=== PATIENT | female | born 1990 | race Caucasian/White ===

== ENCOUNTER 2018-12-08 08:56 | Day surgery (SDC) | payer OTHER ==
[2018-12-07 17:04] VITALS: BMI 28.5
[2018-12-08 11:10] VITALS: TEMP 98.1
[2018-12-08 11:33] VITALS: BP 104/59
[2018-12-08 12:15] VITALS: PULSE 64
--- NOTE | 2018-12-09 17:10 | PATH ---
Surgical Pathology Report Patient Name: MARISSA PORTILLO [facility]. Rec. #: [id number] /Age/Gender: 1990 (Age: 28) / F Account: [id number] Location: U-ENDOSCOPY Taken: 12/08/2018 Received: 12/08/2018 Reported: 12/09/2018 Physicians: Sterling Roque D.O. Specimen(s) Received A: TRANSVERSE COLON POLYPS B: DISTAL TRANSVERSE COLON POLYP C: DESCENDING COLON Clinical History Family history of GI cancer Postoperative diagnosis and findings: polyps Final Diagnosis A. TRANSVERSE COLON POLYPS, POLYPECTOMY: TUBULAR ADENOMA, ONE FRAGMENT. SEPARATE POLYPOID FRAGMENT OF COLONIC MUCOSA WITH FOCAL SURFACE HYPERPLASTIC CHANGE. B. DISTAL TRANSVERSE COLON POLYP, POLYPECTOMY: TUBULAR ADENOMA. Note: Result for the mismatch repair proteins IHC staining pending. An addendum report to follow. C. DESCENDING COLON, BIOPSY: COLONIC MUCOSA WITH REACTIVE LYMPHOID FOLLICLE IN THE LAMINA PROPRIA. Electronically Signed Sabiha Snowden M.D. Addendum Reported: 12/11/2018 Addendum Diagnosis Immunohistochemistry (IHC) Testing for Mismatch Repair (MMR) Proteins (Block B) performed at [facility] in [place], [place] ([id number]) and interpreted at [facility] show the following results: MLH1 Intact nuclear expression MSH2 Intact nuclear expression MSH6 Intact nuclear expression PMS2 Intact nuclear expression Background nonneoplastic tissue/internal control with intact nuclear expression IHC Interpretation: No loss of nuclear expression of MMR proteins: low probability of microsatellite instability-high (MSI-H) Sabiha Snowden M.D. Gross Description A. Received in formalin, labeled "transverse colon polyps" are 2 leyva, irregular soft tissue measuring 0.2 to 0.3 cm. in greatest dimension. The specimen is submitted in toto in one cassette. B. Received in formalin, labeled "distal transverse colon polyp" is a leyva soft tissue measuring 0.5 cm. in greatest dimension. The specimen is submitted in toto in one cassette. C. Received in formalin, labeled "descending colon" are 2 leyva, irregular soft tissue measuring 0.2 to 0.3 cm. in greatest dimension. The specimen is submitted in toto in one cassette. __ KWS/12/08/2018 sulki/12/08/2018
== END 2018-12-08 12:13 | disposition home or self-care (01) ==
LOC: JASU-ENDO 08:56
PROVIDERS: ATTEND Internal Medicine Gastroenterology
PROC: 0DBL8ZX Excision of Transverse Colon, Via Natural or Artificial Opening Endoscopic, Diagnostic (ICD-10-PCS; principal; 2018-12-08 10:30)
DX: Z12.11 Encounter for screening for malignant neoplasm of colon (principal); Z80.0 Family history of malignant neoplasm of digestive organs; D12.3 Benign neoplasm of transverse colon; K64.8 Other hemorrhoids
CPT/HCPCS: 84703; 88305-TC